=== PATIENT | male | born 1970 | race Caucasian/White ===

== ENCOUNTER 2017-01-03 20:53 | Emergency (ER) | payer BC, OTHER ==
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
== END 2017-01-03 22:00 | disposition home or self-care (01) ==
LOC: LL.ED 20:53
DX: S40.012A Contusion of left shoulder, initial encounter (principal); I11.9 Hypertensive heart disease without heart failure; F41.8 Other specified anxiety disorders; M15.0 Primary generalized (osteo)arthritis; Z71.6 Tobacco abuse counseling; F17.210 Nicotine dependence, cigarettes, uncomplicated; Z79.899 Other long term (current) drug therapy; V40.5XXA Car driver injured in collision with pedestrian or animal in traffic accident, initial encounter
CPT/HCPCS: 73030-LT; 99284

== ENCOUNTER 2018-12-21 00:04 | Emergency (ER) | payer BC ==
[2018-12-21 00:37] LABS: CHLORIDE,CL 99 mmol/L (98-107); SODIUM,NA 137 mmol/L (136-145)
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
== END 2018-12-21 01:25 | disposition home or self-care (01) ==
LOC: LL.ED 00:04
DX: R50.9 Fever, unspecified (principal); I10 Essential (primary) hypertension; F41.9 Anxiety disorder, unspecified; F32.9 Major depressive disorder, single episode, unspecified; M19.90 Unspecified osteoarthritis, unspecified site; E66.9 Obesity, unspecified; Z68.42 Body mass index [BMI] 45.0-49.9, adult; Z87.891 Personal history of nicotine dependence; Z79.899 Other long term (current) drug therapy
CPT/HCPCS: 36415; 71046; 80048; 85025; 87040; 99283-25

== ENCOUNTER 2020-09-29 08:54 | Day surgery (SDC) | payer BC ==
[~2020-09-29 08:54] MED LIST: Lactated Ringers 1,000 ML IV SCH; Midazolam 1 MG/ML 2 ML SDV ONE; Propofol 200 MG/20 ML SDV ONE; Sodium Chloride 0.9% 10 ML Syringe FLUSH PRN
--- NOTE | 2020-09-29 09:41 | PCM.PN ---
- General Info Date of Service: 09/29/20 - Review of Systems Systems Review Comment:: 49-year-old male referred for his initial screening colonoscopy. Patient has multiple relatives who have had colon cancer including an aunt and uncle and a grandparent. He denies having any recent change in bowel habits or rectal bleeding. His recent history and physical is reviewed and no significant changes are noted. I have discussed the proposed colonoscopy with the patient. Risks such as but not limited to bleeding and GI injury reviewed. He agrees to proceed. - Patient Data Weight - Most Recent: 158.304 kg Med Orders - Current: Current Medications Lactated Ringer's (Ringers, Lactated) 1,000 mls @ 125 mls/hr IV ASDIRECTED GIANCARLO Sodium Chloride (Sodium Chloride 0.9% 10 Ml Syringe) 10 ml FLUSH ASDIRECTED PRN PRN Reason: Keep Vein Open Discontinued Medications Midazolam HCl (Midazolam 1 Mg/Ml 2 Ml Sdv) Confirm Administered Dose 2 mg .ROUTE .STK-MED ONE Stop: 09/29/20 08:30 Propofol (Propofol 200 Mg/20 Ml Sdv) Confirm Administered Dose 400 mg .ROUTE .STK-MED ONE Stop: 09/29/20 08:30 - Problem List Review Problem List Initiated/Reviewed/Updated: Yes - Assessment Assessment:: Colon cancer screening Family history of colon cancer - Plan Plan:: Colonoscopy
[2020-09-29] MEDS ORDERED: Propofol 200 MG/20 ML SDV ONE (09:42)
[2020-09-29] MEDS ORDERED: Midazolam 1 MG/ML 2 ML SDV ONE (09:42)
--- NOTE | 2020-09-29 10:24 | PCM.OPNOTE ---
- General Post-Op/Procedure Note Date of Surgery/Procedure: 09/29/20 Operative Procedure(s): Colonoscopy Findings: Normal appearing colon Pre Op Diagnosis: Colon cancer screening Post-Op Diagnosis: Normal colon Anesthesia Technique: MAC Primary Surgeon: Chaz Bull Pathology: none EBL in mLs: 0 Complications: None Condition: Good
--- NOTE | 2020-09-29 11:26 | OR ---
Date of Procedure: 09/29/2020 PREOPERATIVE DIAGNOSIS: Colon cancer screening with a family history of colon cancer. POSTOPERATIVE DIAGNOSIS: Normal colon. OPERATION PERFORMED: Colonoscopy. INDICATIONS FOR SURGERY: This 49-year-old male is referred for his initial screening colonoscopy. He does have a family history of colon cancer in multiple second-degree relatives. FINDINGS: The patient's colon and rectum appeared normal. No polyps or other abnormalities were seen. DESCRIPTION OF PROCEDURE: The patient was taken to the operating room. He was given intravenous sedation, and with him in the left lateral decubitus position, digital rectal exam was performed showing no rectal masses. The Olympus colonoscope was inserted into the rectum. Retroflexed examination of the rectal canal was performed. The scope was then carefully advanced under direct visualization through the entire length of the colon until the cecum was reached. Cecal acquisition was confirmed by noting the normal internal cecal anatomy including the appendiceal orifice and the ileocecal valve. After examining the cecum, the scope was slowly withdrawn sequentially re-examining the colonic segments until the entire colon and rectum had been fully examined. The scope was removed and the patient was taken from the operating room in satisfactory condition. ESTIMATED BLOOD LOSS: 0. COMPLICATIONS: None. PROGNOSIS: Good. EMMETT Bull MD /[id number]
== END 2020-09-29 11:35 | disposition home or self-care (01) ==
LOC: LL.SDS 08:54
PROVIDERS: ATTEND Surgery
DX: Z12.11 Encounter for screening for malignant neoplasm of colon (principal); I10 Essential (primary) hypertension; E66.01 Morbid (severe) obesity due to excess calories; Z80.0 Family history of malignant neoplasm of digestive organs; Z68.42 Body mass index [BMI] 45.0-49.9, adult
CPT/HCPCS: 45378; J2250; J2704; 00812